=== PATIENT | male | born 1950 | race Caucasian/White ===

== ENCOUNTER 2019-12-26 14:43 | Outpatient (CLI) | payer MEDICARE, SELFPAY ==
--- NOTE | ~2019-12-26 | CT_ITS ---
EXAMINATION: CT abdomen pelvis wo con EXAM DATE: 12/26/2019 15:08 INDICATION: Adult polycystic kidney. TECHNIQUE: Spiral CT of the abdomen and pelvis was performed without contrast. Axial, coronal and sag ittal images were reviewed. The dose-length product (DLP) for this examination was 1352.88 mGy-cm. The exposure was tailored according to patient size (auto mA exposure control), and iterative reconst ruction (ASIR) was used as additional dose reduction technique. There is no prior study for comparis on. FINDINGS: Innumerable renal cysts within the kidneys bilaterally, with the kidneys measuring up to 20 cm in craniocaudal dimension. There is no hydronephrosis or nephrolithiasis. The prostate is unrema rkable. The bladder is unremarkable. Some scattered small liver cysts. No suspicious liver lesions. Spleen, pancreas and adrenal glands are unremarkable. Gallbladder is unremarkable. No biliary obst ruction. There is no retroperitoneal or pelvic lymphadenopathy. The appendix is not positively visualized. There is no pericecal inflammatory change to suggest appe ndicitis. There is mild to moderate sigmoid colonic diverticulosis. There is no adjacent inflammator y change to suggest diverticulitis. The stomach and small bowel are unremarkable. There is expected amount of colonic stool. No free intraperitoneal gas. The heart is normal in size. There are no pericardial or pleural effusions. There are bibasilar linear opacities, subsegmental atelectasis. T here are no osteoblastic or osteolytic lesions identified. Moderate to severe lumbar disc disease. Mi ld lumbar scoliosis. IMPRESSION: 1. Findings consistent with autosomal dominant polycystic kidney disease. 2. Mild to moderate sigmoid diverticulosis. Reviewed, dictated and finalized at location [facility].
== END 2019-12-26 14:44 | disposition home or self-care (01) ==
PROVIDERS: PCP Internal Medicine; Visit Provider Internal Medicine Nephrology
DX: Q61.2 Polycystic kidney, adult type (principal); R10.9 Unspecified abdominal pain; K57.30 Diverticulosis of large intestine without perforation or abscess without bleeding
CPT/HCPCS: 74176

== ENCOUNTER → 2022-11-04 10:00 | Outpatient (CLI) | payer MEDICARE, SELFPAY ==
--- NOTE | ~2022-11-04 | MR_ITS ---
MRI of the lumbar spine Clinical History: Chronic pain Technique: Axial T2-weighted images, and sagittal T1-weighted, T2-weighted, and T2 fat-sat images wer e acquired. Findings: There is no fracture or subluxation of the lumbar spine. Vertebral bodies maintain normal h eight and alignment. No suspicious bone marrow signal abnormality seen. There is advanced degenerativ e disc narrowing throughout the lumbar spine. At L1-L2, there is diffuse disc bulge, worst in the right foraminal region, with mild to moderate fac et arthropathy. There is probable right lateral recess stenosis with moderate to severe right neural foraminal narrowing. Left neural foramen preserved. At L2-L3, there is advanced facet arthropathy. No definite disc bulge or herniation. No central canal stenosis. There is moderate left neural foraminal narrowing. Right neural foramen preserved. At L3-L4, there is minimal disc bulge with severe facet arthropathy and left lateral recess stenosis. There is moderate to severe left neural foraminal narrowing. Right neural foramen preserved. At L4-L5, there is diffuse disc bulge with advanced facet arthropathy. No central canal stenosis. Galo ral foramina are preserved. At L5-S1, there is diffuse disc bulge with moderate facet arthropathy. No central canal stenosis. The re is severe right neural foraminal narrowing and moderate to severe left neural foraminal narrowing. Paravertebral soft tissues are unremarkable. Impression: Multilevel advanced neural foraminal narrowing, as detailed above. 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 Reviewed, dictated and finalized at [facility]. Impression: Multilevel advanced neural foraminal narrowing, as detailed above. 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
== END ==
DX: M79.18 Myalgia, other site (principal); M54.16 Radiculopathy, lumbar region; G89.29 Other chronic pain
CPT/HCPCS: 72148